=== PATIENT | female | born 1955 | race Caucasian/White ===

== ENCOUNTER → 2020-11-12 14:00 | Outpatient (BNVA) | payer OTHER, SELFPAY | PROVIDERS: PCP Physician Assistant; Visit Provider Orthopaedic Surgery | DX: M17.11 Unilateral primary osteoarthritis, right knee (principal) | CPT/HCPCS: 20610; J1100 ==

== ENCOUNTER 2023-06-15 15:34 | Outpatient (AMB) | payer MEDICARE, SELFPAY ==
[2023-06-15 16:17] VITALS: BP 122/70; PULSE 71; TEMP 36.4; O2SAT 98; BMI 25.4
--- NOTE | 2023-06-15 16:17 | MHC.OFFWIV ---
Intake Vital Signs 06/15/23 16:17 Height 5 ft 5 in Weight 152 lb 6 oz BMI 25.4 BP 122/70 Blood Pressure Location Rt brachial Position Sitting Pulse 71 Pulse Source Pulse Oximeter Temp 97.6 F Temp Source Temporal Artery Scan Pulse Oximetry (%) 98 Oxygen Delivery Method Room Air Intake Visit Reasons: [employer]/cough for 3 weeks(lobby masked) Intake Note: Pt is here c/o on going cough for three weeks. Pt states she has been taking OTC medications for three weeks and it has gotten worse. Pt states it hits her hardest at night. Patient Tobacco Use Status: Never used Tobacco Allergies sertraline Allergy (Unknown, Verified 06/15/23 16:19) Unknown chlorthalidone Allergy (Verified 06/15/23 16:19) muscle pain lisinopril Allergy (Verified 06/15/23 16:19) Nausea HPI HPI Comments History of Present Illness Details Patient presents to the walk in for 3 weeks cough, sinus congestion reports now with sinus pressure and tenderness Denies fever, chest pain, shortness of breath, palpitations, syncope, weakness Denies ear pain, sore throat. Has been taking OTC medications without improvement. [facility] Medical History Hypertension Social History (Updated 11/12/20 @ 14:14 by Deshawn Baker) Patient Tobacco Use Status: Never used Tobacco Current occupational status: employed Current occupation: rt handed Review of Systems Const All systems reviewed & are unremarkable except as noted in HPI and below Physical Exam Vital Signs: Last Vital Signs Temp 97.6 F 06/15/23 16:17 Pulse 71 06/15/23 16:17 BP 122/70 06/15/23 16:17 Pulse Ox 98 06/15/23 16:17 Oxygen Delivery Method Room Air 06/15/23 16:17 BMI result Body Mass Index 25.4 General: awake, alert, oriented. Answers questions appropriately. Fully engaged in examination. Skin: warm, dry, intact HEENT: TMs intact bilaterally, no redness. Posterior pharynx without erythema or exudate. Sclera without icterus or injection. Tenderness to palpation over frontal and maxillary sinuses Cardiac: External chest normal in appearance. Respiratory: +cough. LSCTAB. Abdomen: without gross distension. Neurological: Oriented to person, place, time and situation. Thought process intact. Psychiatric: Appropriate mood and affect. Good judgment and insight. Assessment & Plan Assessment & Plan (1) Sinus infection: Code(s): J32.9 - Chronic sinusitis, unspecified Plan Sinusitis: Amoxicillin 500mg po TID X 7 days Benzonatate 100mg po bid as needed Rest, drink plenty of fluids, tylenol or motrin as needed. Follow up with pcp or in clinic for any new or worsening symptoms. Go to ER for shortness of breath, chest pain, palpitations, weakness, dizziness. Medications: New benzonatate 100 mg PO BID PRN 20 caps 0RF cough Coding Level of Care Code New Pt Level 3 (13066) Diagnoses Sinus infection J32.9
== END 2023-06-15 16:55 | disposition home or self-care (01) ==
PROVIDERS: PCP Physician Assistant; Visit Provider Registered Nurse Emergency
DX: J32.9 Chronic sinusitis, unspecified (principal)
CPT/HCPCS: 99203